=== PATIENT | female | born 1985 | race Caucasian/White ===

== ENCOUNTER 2018-02-17 05:24 | Inpatient (IN) | payer OTHER ==
[2018-02-17] MEDS ORDERED: METHYLERGONOVINE 0.2 MG/ML 1 ML AMP IM PRN (06:50)
[2018-02-17] MEDS ORDERED: LIDOCAINE 0.5% (PF) 5 MG/ML (50 ML SDV) SQ PRN (06:50)
[2018-02-17] MEDS ORDERED: TERBUTALINE 1 MG/ML VIAL SQ PRN (06:50)
[2018-02-17] MEDS ORDERED: OXYTOCIN 10 UNIT/ML 1 ML VIAL IM PRN (06:50)
[2018-02-17] MEDS ORDERED: CARBOPROST TROMETHAMINE 250 MCG/ML 1 ML AMP IM PRN (06:50)
[2018-02-17] MEDS ORDERED: OXYTOCIN 20 UNITS/1000 ML NS 1,000 ML IV SCH ×2 (07:00→14:45)
[2018-02-17] MEDS: LACTATED RINGERS 1,000 ML IV SCH ×2 (07:45→10:22)
[2018-02-17 07:52] LABS: Basophils % (A) 0 %; Eosinophils # (A) 0.2 k/uL (0-0.7); Eosinophils % (A) 1 %; HCT 37.3 % (34.0-46.0); HGB 12.5 gm/dL (11.4-16.0); Lymphocytes # (A) 2.3 k/uL (1.0-4.8); Lymphocytes % (A) 17 %; MCH 28.3 pg (25.0-35.0); MCHC 33.5 g/dL (31.0-37.0); MCV 84.3 fL (80.0-100.0); Mean Platelet Volume 6.8; Monocytes # (A) 0.6 k/uL (0-1.0); Monocytes % (A) 4 %; Neutrophils # (A) 9.8 k/uL (1.3-7.7); Neutrophils % (A) 75 %; Platelet Count 219 k/uL (150-450); RBC 4.43 m/uL (3.80-5.40); RDW 13.7 % (11.5-15.5)
--- NOTE | 2018-02-17 10:15 | P.HPOB ---
History of Present Illness H&P Date: 02/17/18 Chief Complaint: 40-0/7 weeks, early labor The patient is a 33-year-old 4 para 1021 admitted at 40-0/7 weeks as established by last menstrual period and confirmed by second trimester ultrasound. She is admitted in early active labor having made cervical change in triage with regular contractions. She had been scheduled for induction of labor tomorrow but instead presented in labor today. Her has been uncomplicated aside from being somewhat late for care having been first seen at approximately 23 weeks' gestation. As result, she did not have any screening for her status within the category of advanced maternal age. The remainder of her was uncomplicated and group B strep status is negative. Obstetrical history: 4 para 1021 with 1 previous normal spontaneous vaginal delivery without complications at term. Current statistics are listed in history of present illness. EDC of 18 was established by last menstrual period and confirmed by second trimester ultrasound. Laboratory workup demonstrates a blood type of B+ with a negative antibody screen. Rubella status is immune. The remainder of the laboratory workup was within normal limits. Second trimester Glucola was normal and group B strep status is negative. Gynecologic history: Unremarkable with no history of any infections to include STDs. Review of Systems Review of systems is confined to history of present illness. Past Medical History Past Medical History: No Reported History History of Any Multi-Drug Resistant Organisms: None Reported Past Surgical History: No Surgical Hx Reported Additional Past Surgical History / Comment(s): wisdom teeth Past Anesthesia/Blood Transfusion Reactions: No Reported Reaction Past Psychological History: No Psychological Hx Reported Smoking Status: Never smoker Past Alcohol Use History: None Reported Past Drug Use History: None Reported - Past Family History Brother(s) Additional Family Medical History / Comment(s): spina bifida (maternal half brother) Medications and Allergies Home Medications Medication Instructions Recorded Confirmed Type Pnv,Calcium 72/Iron/Folic Acid 1 tab PO DAILY 02/17/18 02/17/18 History [ Plus Tablet] Allergies Allergy/AdvReac Type Severity Reaction Status Date / Time No Known Allergies Allergy Verified 02/17/18 05:26 Exam Vital Signs Temp Pulse Resp BP 02/17/18 06:45 96.4 F L 93 16 127/72 02/17/18 05:28 96.5 F L 93 16 127/72 Intake and Output 02/16/18 02/17/18 02/17/18 22:59 06:59 14:59 Other: Weight 86.183 kg In general, this is a well-developed, well-nourished white female in some discomfort as she is in labor. Her heart has a regular rhythm and rate without murmur. Her lungs are clear to auscultation bilaterally in all bailey. Her abdomen is gravid, nondistended, has normal active bowel sounds, is soft, nontender, and without any palpable masses aside from uterine fundus. Her extremities are without any cyanosis, clubbing, or significant edema and are nontender to palpation bilaterally. Digital cervical examination demonstrates her cervix to be approximately 3-4 cm dilated, 70% effaced, the vertex in presentation at -2 station. Artificial rupture of membranes is carried out demonstrating clear fluid. Results Result Diagrams: 02/17/18 07:30 Abnormal Lab Results - Last 24 Hours (Table) 02/17/18 Range/Units 07:30 WBC 13.0 H (3.8-10.6) k/uL Neutrophils # 9.8 H (1.3-7.7) k/uL Assessment and Plan (1) Active labor at term Current Visit: Yes Status: Acute Code(s): [id number] - SNOMED Code(s): 87786610 Plan: The patient has been admitted for active management of labor. She will undergo augmentation of labor with Pitocin similar to being induced tomorrow morning. Artificial rupture of membranes is been carried out. She will have close maternal and surveillance and expectant management will be practiced. She is a good candidate for either IV or epidural analgesia, whichever she may choose.
[2018-02-17] MEDS ORDERED: ROPIVACAINE 100 MG, fentaNYL (PF) 200 MCG in SODIUM CHLORIDE 0.9% 76 ML EPIDURAL ONE (10:50)
[2018-02-17] MEDS ORDERED: HYDROCORTISONE 2.5% RECTAL CREAM 30 GM TUBE RECTAL PRN (14:39)
[2018-02-17] MEDS ORDERED: diphenhydrAMINE 25 MG CAP PO PRN (14:39)
[2018-02-17] MEDS ORDERED: BENZOCAINE/MENTHOL SPRAY 1 GM/SPRAY AEROSOL TOPICAL PRN (14:39)
[2018-02-17] MEDS ORDERED: diphenhydrAMINE 50 MG CAP PO PRN (14:39)
[2018-02-17] MEDS ORDERED: HYDROcodone/APAP 7.5-325MG 1 EACH TAB PO PRN (14:39)
[2018-02-17] MEDS ORDERED: ZOLPIDEM 5 MG TAB PO PRN (14:39)
[2018-02-17] MEDS ORDERED: diphenhydrAMINE 50 MG/ML 1 ML VIAL IVP PRN ×2 (14:39)
[2018-02-17] MEDS ORDERED: HYDROcodone/APAP 5-325MG 1 EACH TAB PO PRN (14:39)
[2018-02-17] MEDS ORDERED: SIMETHICONE 80 MG CHEWABLE PO PRN (14:39)
[2018-02-17] MEDS ORDERED: WITCH HAZEL 1 EACH MED..PAD TOPICAL PRN (14:39)
--- NOTE | 2018-02-17 14:43 | P.PROBDLV ---
Vaginal Delivery Note - . Vaginal Delivery Note: The patient is a 33-year-old 4 para 1021 admitted at 40-0/7 weeks by good dating parameters. She is admitted in early labor with all signs reassuring. She had been scheduled for an induction of labor tomorrow but presented today in labor as noted. Her has been essentially uncomplicated though she had somewhat late presentation for care. On admission , all signs reassuring. Group B strep status is negative. She underwent artificial rupture of membranes demonstrating clear fluid. She had an epidural catheter placed around the onset of the active phase of labor and ultimately had Pitocin augmentation added. She then made fairly rapid progress to complete and 0 station. She pushed over the course of approximately 15-20 minutes to a normal spontaneous vaginal delivery of a viable 7 lbs. 3 oz. baby girl with Apgars of 9 at 1 minute and 10 at 5 minutes delivered in the right occiput anterior position. There was a loose nuchal cord noted and reduced following delivery of the infant. The placenta was delivered spontaneously, intact, and grossly normal with a grossly normal, centrally inserted three- vessel cord. There was a single skin split over the site of a previous laceration or episiotomy repair which was gaping and therefore repaired with a single stitch of 3-0 chromic catgut. Estimated blood loss for the entire case was approximately 200 mL. There were no complications. All sponge, instrument , and needle counts were correct. Both mother and are resting comfortably in recovery.
[2018-02-17] MEDS: IBUPROFEN 600 MG TAB PO PRN (20:07)
[2018-02-17] MEDS: SENNOSIDES-DOCUSATE SODIUM 1 EACH TAB PO SCH (20:08)
[2018-02-18] MEDS: IBUPROFEN 600 MG TAB PO PRN ×2 (02:26→11:36)
[2018-02-18] MEDS: ACETAMINOPHEN TAB 325 MG TAB PO PRN ×2 (07:52→14:37)
[2018-02-18] MEDS: SENNOSIDES-DOCUSATE SODIUM 1 EACH TAB PO SCH (07:53)
[2018-02-18 08:20] VITALS: RESP 16
[2018-02-18 08:21] VITALS: BP 114/78; PULSE 88; TEMP 98.1
--- NOTE | 2018-02-18 10:51 | P.DS ---
Providers Date of admission: 02/17/18 06:45 Expected date of discharge: 02/18/18 Attending physician: Kulwinder Arana Primary care physician: Kulwinder Arana - Discharge Diagnosis(es) (1) Active labor at term Current Visit: Yes Status: Acute (2) Normal spontaneous vaginal delivery Current Visit: Yes Status: Acute Hospital Course: The patient is a 33-year-old 4 para 1021 admitted at 40-0/7 weeks by good dating parameters perches admitted in early active labor with all signs reassuring. Her was uncomplicated aside from slightly late establishment of care. She presented to late to have any screening regarding advanced maternal age. Group B strep status was negative. On labor and delivery, she had artificial rupture of membranes carried out demonstrating clear fluid. She had an epidural catheter placed for analgesia and later had Pitocin augmentation added. She then progressed fairly quickly to complete and pushed to a normal spontaneous vaginal delivery of a viable 7 lbs. 3 oz. baby girl with Apgars of 9 at 1 minute and 10 at 5 minutes. Her course was unremarkable with vital signs remaining stable and her temperature was afebrile throughout. She was deemed stable for discharge and was discharged home to follow-up in the office in 6 weeks' time routinely. Discharge instructions included calling for any significantly increased bleeding or foul- smelling lochia, significantly increased fever or abdominal pain, perineal complaints, breast complaints, or anything else that concerned her. She was additionally instructed to have nothing in the vagina for at least 6 weeks time to include intercourse. She understood her instructions and agrees to follow up as noted above. Discharge medications included only [id number] analgesic pain medications as needed. Maternal blood type is B+ and rubella status is immune. Procedures: #1. Artificial rupture of membranes #2. Epidural analgesia #3. Pitocin augmentation #4. Normal spontaneous vaginal delivery #5. Repair of perineal laceration Patient Condition at Discharge: Good Plan - Discharge Summary New Discharge Prescriptions: No Action Pnv,Calcium 72/Iron/Folic Acid [ Plus Tablet] 1 tab PO DAILY Discharge Medication List Pnv,Calcium 72/Iron/Folic Acid [ Plus Tablet] 1 tab PO DAILY 02/17/18 [ History] Follow up Appointment(s)/Referral(s): Kulwinder Arana MD [Primary Care Provider] - 6 Weeks Discharge Disposition: HOME SELF-CARE
--- NOTE | 2018-02-20 12:37 | P.MSEPDOC ---
Presenting Problems - Arrival Data Date of Arrival on Unit: 02/17/18 Time of Arrival on Unit: 06:50 Mode of Transport: Wheelchair - Complaint OB-Reason for Admission/Chief Complaint: Possible Onset of Labor Comment: pt states she has been devon since 2am and has had some bloody show present Medical History - Information : 4 Para: 1 Term: 1 : 0 Abortions: Spontaneous or Elective: 2 Number of Living Children: 1 - Gestational Age Gestational Age by ELVIRA (wks/days): 40 Weeks and 0 Days Review of Systems - Review of Systems Constitutional: No problems Breast: No problems ENT: No problems Cardiovascular: No problems Respiratory: No problems Gastrointestinal: No problems Genitourinary: No problems Musculoskeletal: No problems Neurological: No problems Skin: No problems Vital Signs - Temperature Temperature: 98.1 F Temperature Source: Oral - Pulse Right Pulse Rate: 88 Pulse Assessment Method: Automatic Cuff - Respirations Respiratory Rate: 16 O2 Sat by Pulse Oximetry: 97 - Blood Pressure Right Arm Blood Pressure: 114/78 Blood Pressure Mean: 90 Blood Pressure Source: Automatic Cuff Medical Screen Scoring (Pre) - Cervical Exam Dilation: 1-3 cm = 1 Effacement: More than 50% = 2 Membranes: Intact - Uterine Contractions Frequency: > or = 36 weeks =2 Duration: > 40 seconds = 2 - Maternal Vital Signs Maternal Temperature: N/A Maternal Blood Pressure: N/A Signs of Preeclampsia: N/A Maternal Respirations: N/A - Pain Assessment Pain Location and Character: Abdomen Pain Scale Used: Numeric (1 - 10) Pain Intensity: 8 Pain Management Goal: 4 Pain Description: *Acute, Aching, Crushing Pain Frequency: Intermittent Pain Duration Units: Minutes Pain Behavior: Facial Grimacing Pain Aggravating Factors: Contractions - Assessment Baseline FHR: 125 Position: N/A - Total Score Total Score (Pre): 7 - Level of Risk Level of Risk: Medium (6-9) Physician Notification (Pre) - Notification Comment Comment: dr vazquez in house Medical Screen Scoring (Post) - Cervical Exam Dilation: 1-3 cm = 1 Effacement: More than 50% = 2 Membranes: Intact - Uterine Contractions Frequency: > or = 36 weeks =2 Duration: > 40 seconds = 2 Intensity: Contraction palpated strong = 1 - Maternal Vital Signs Maternal Temperature: N/A Maternal Blood Pressure: N/A Signs of Preeclampsia: N/A Maternal Respirations: N/A - Pain Assessment Pain Scale Used: Numeric (1 - 10) - Assessment Heart Rate: 125 Heart Rate - NICHD Category: Category I (Normal) = 0 NST: Reactive Position: N/A - Total Score Total Score (Post): 8 - Post Treatment Level of Risk Post Treatment Level of Risk: Medium (6-9) Physician Notification (Post) - Physician Notified Physician Notified Date: 02/17/18 Physician Notified Time: 06:45 Physician/Practitioner Notified:: Dr Vazquez - Notification Comment Comment: reported on pts c/o cntrx through the night, SVE unchanged since office last week, pt scheduled for induction tomorrow, reactive fhts, cntrx pattern, bloody show. orders to admit for labor, start iv, he'll be in shortly to assess her Disposition - Disposition OB Disposition: Admit Transferred to:: st 4 Discharge Date: 02/18/18 Discharge Time: 15:31 I agree with the RN Medical Screening Exam: Yes Risk & Benefit of care provided described in d/c instruction: Yes Diagnosis: ENCOUNTER FOR FULL-TERM UNCOMPLICATED DELIVERY
== END 2018-02-18 15:39 | disposition home or self-care (01) | DRG 807 ==
LOC: FBPOP 05:24 → 4FBP 06:45
PROVIDERS: ADMIT Obstetrics & Gynecology; ATTEND Obstetrics & Gynecology
PROC: 10907ZC Drainage of Amniotic Fluid, Therapeutic from Products of Conception, Via Natural or Artificial Opening (ICD-10-PCS; principal; 2018-02-17)
PROC: 10E0XZZ Delivery of Products of Conception, External Approach (ICD-10-PCS; 2018-02-17)
PROC: 0KQM0ZZ Repair Perineum Muscle, Open Approach (ICD-10-PCS; 2018-02-17)
PROC: 3E033VJ Introduction of Other Hormone into Peripheral Vein, Percutaneous Approach (ICD-10-PCS; 2018-02-17)
PROC: 3E0R3BZ Introduction of Anesthetic Agent into Spinal Canal, Percutaneous Approach (ICD-10-PCS; 2018-02-17)
DX: O70.1 Second degree perineal laceration during delivery (principal); Z37.0 Single live birth; Z3A.40 40 weeks gestation of pregnancy; Z82.79 Family history of other congenital malformations, deformations and chromosomal abnormalities
CPT/HCPCS: 59025; 84112; 85025; 86850; 86900; 86901; 99213

== ENCOUNTER 2018-06-20 10:20 | Emergency (ER) | payer OTHER ==
[2018-06-20 10:23] VITALS: RESP 18
[2018-06-20] MEDS ORDERED: methylPREDNISolone SOD SUCCI 125 MG/2 ML VIAL IM ONE (10:51)
[2018-06-20] MEDS ORDERED: KETOROLAC 30 MG/ML 1 ML VIAL IM STA (10:52)
--- NOTE | 2018-06-20 10:59 | ED ---
General Adult HPI - General Chief complaint: Extremity Problem,Nontraumatic Stated complaint: lt leg pain Time Seen by Provider: 06/20/18 10:26 Source: patient, RN notes reviewed Mode of arrival: ambulatory Limitations: no limitations - History of Present Illness Initial comments: 33-year-old female with a past medical history of chronic back pain since 2013 presents to the emergency department for a chief complaint of left-sided sciatic pain. Patient states she has had this pain before. Patient states it is shooting down the back of her leg all the way down to her foot. Patient denies bladder or bowel changes. Patient denies any saddle anesthesia. Patient denies any weakness in the lower extremities. No fevers or chills. No history of IV drug abuse. Patient denies any chance of . Patient has no other complaints at this time including shortness of breath, chest pain, abdominal pain, nausea or vomiting, headache, or visual changes. - Related Data Home Medications Medication Instructions Recorded Confirmed Apri 1 tab PO DAILY 06/20/18 06/20/18 Sertraline [Zoloft] 50 mg PO DAILY 06/20/18 06/20/18 Allergies Allergy/AdvReac Type Severity Reaction Status Date / Time No Known Allergies Allergy Verified 06/20/18 10:51 Review of Systems ROS Statement: Those systems with pertinent positive or pertinent negative responses have been documented in the HPI. ROS Other: All systems not noted in ROS Statement are negative. Past Medical History Past Medical History: No Reported History History of Any Multi-Drug Resistant Organisms: None Reported Past Surgical History: No Surgical Hx Reported Additional Past Surgical History / Comment(s): wisdom teeth Past Anesthesia/Blood Transfusion Reactions: No Reported Reaction Past Psychological History: Depression Smoking Status: Never smoker Past Alcohol Use History: None Reported Past Drug Use History: None Reported - Past Family History Brother(s) Additional Family Medical History / Comment(s): spina bifida (maternal half brother) General Exam Limitations: no limitations General appearance: alert, in no apparent distress Head exam: Present: atraumatic, normocephalic, normal inspection Eye exam: Present: normal appearance, PERRL, EOMI. Absent: scleral icterus, conjunctival injection, periorbital swelling ENT exam: Present: normal exam, mucous membranes moist Neck exam: Present: normal inspection, full ROM. Absent: tenderness, meningismus, lymphadenopathy Respiratory exam: Present: normal lung sounds bilaterally. Absent: respiratory distress, wheezes, rales, rhonchi, stridor Cardiovascular Exam: Present: regular rate, normal rhythm, normal heart sounds. Absent: systolic murmur, diastolic murmur, rubs, gallop, clicks Extremities exam: Present: normal capillary refill (Capillary refill less than 2 seconds, DP pulse 2+ in the left lower extremity), other (Positive straight leg raise test on the left lower extremity. Tenderness in the sciatic notch). Absent: calf tenderness (No calf tenderness, no edema, no erythema, no increased circumference of the left calf) Back exam: Absent: vertebral tenderness Neurological exam: Present: alert, oriented X3, CN II-XII intact Psychiatric exam: Present: normal affect, normal mood Course Vital Signs 06/20/18 06/20/18 10:21 13:01 Temperature 98.0 F Pulse Rate 74 Respiratory 18 Rate Blood Pressure 124/83 125/85 O2 Sat by Pulse 99 Oximetry Medical Decision Making - Medical Decision Making 33-year-old female presents to the emergency department for a chief complaint of left leg pain. Patient states she has chronic back pain and has had sciatic pain in the past. The pain is radiating down the back of her leg down to her foot. She states it comes as a sharp shooting pains. She denies bladder or bowel changes, saddle anesthesia, fevers or chills. There is no swelling or calf tenderness noted in the leg. Neurovascular status intact in the left lower extremity. Positive straight leg raise test. Patient likely having sciatic pain. Patient initially given Toradol and Solu-Medrol without much relief. Patient given morphine as well. Minimal relief. Patient is ready to be discharged home however. She will be discharged home with prednisone, Flexeril, and Motrin. She is to return here if she has any worsening symptoms. I did discuss to return if she has any swelling or erythema of the leg, fevers, or bladder or bowel changes or saddle anesthesia. Disposition Clinical Impression: Sciatic leg pain Disposition: HOME SELF-CARE Condition: Good Instructions (If sedation given, give patient instructions): Sciatica (ED), Lower Back Exercises (ED) Additional Instructions: Please take prednisone and Flexeril as directed. Do not drive or operate machinery while taking Flexeril. Take Motrin as well but be sure to take food with Motrin. Do not get while taking Motrin. Follow-up with orthopedics this it is possible. If you are having any worsening symptoms then return here to the emergency department. These could include redness or swelling of the leg, fevers, bladder or bowel changes, or numbness of the buttock or groin. Is patient prescribed a controlled substance at d/c from ED?: No Referrals: Reagan Baum MD [REFERRING] - 1-2 days Eliud Valentine DO [Doctor of Osteopathic Medicine] - 1-2 days Time of Disposition: 13:39
[2018-06-20] MEDS ORDERED: ONDANSETRON ODT 4 MG TAB PO STA (12:13)
[2018-06-20] MEDS ORDERED: MORPHINE SULFATE 4 MG/ML SYRINGE IM STA (12:13)
[2018-06-20 13:31] VITALS: BP 125/85
[2018-06-20 14:10] VITALS: PULSE 66; TEMP 97
== END 2018-06-20 14:09 | disposition home or self-care (01) ==
LOC: EC 10:20
DX: M54.32 Sciatica, left side (principal); F32.9 Major depressive disorder, single episode, unspecified; Z79.899 Other long term (current) drug therapy; Z79.3 Long term (current) use of hormonal contraceptives
CPT/HCPCS: 99283; 96372 ×3; J2270; J2930; J1885

== ENCOUNTER 2018-06-25 09:14 | Emergency (ER) | payer OTHER ==
[2018-06-25 09:17] VITALS: BP 126/83; PULSE 90; RESP 18; TEMP 98.1
[2018-06-25] MEDS ORDERED: MORPHINE SULFATE 2 MG/ML SYRINGE IM STA (10:15)
--- NOTE | 2018-06-25 10:20 | ED ---
Back Pain HPI - General Chief Complaint: Back Pain/Injury Stated Complaint: pain with walking Time Seen by Provider: 06/25/18 09:53 Source: patient Limitations: no limitations - History of Present Illness Initial Comments: 33-year-old female past history of chronic back pain and left leg sciatica presenting today for chief complaint of left-sided sciatica. Patient states that she was seen last the emergency department for same complaint. She states that she had a sharp burning sensation down her leg is most of the thigh. She states that it now involves her calf. She states it is sharp shooting at times she feels a tingling sensation. Patient denies trauma injury to the back fever or chills night sweats history of cancer history of IV drug use loss of bowel bladder control urinary retention or numbness of the lower extremities, swelling of the leg or history of DVT. Patient states she has an appointment made on July [address] Baum, patient did not make an appointment with Dr[facility]. Pt denies weakness of the left leg but states that with ambulation the pain increases and certain position of the back. Pt states she has never had significant trauma to the back but has had this issue on and off chronically since 2013. Pt was supposed to go to physical therapy but her insurance lapsed at this time. Upon arrival patient is ambulatory. VS WNL, remaining ROS (-), patient denies any recent shortness of breath, chest pain, abdominal pain, nausea or vomiting, numbness or tingling, dysuria or hematuria, constipation or diarrhea, headaches or visual changes, or any other complaints. - Related Data Home Medications Medication Instructions Recorded Confirmed Apri 1 tab PO DAILY 06/20/18 06/25/18 Sertraline [Zoloft] 50 mg PO DAILY 06/20/18 06/25/18 traMADol HCL [Ultram] 100 mg PO ONCE PRN 06/25/18 06/25/18 Previous Rx's Medication Instructions Recorded Ibuprofen [Motrin] 600 mg PO Q8HR PRN #20 tab 06/20/18 predniSONE 50 mg PO DAILY #5 tablet 06/20/18 Allergies Allergy/AdvReac Type Severity Reaction Status Date / Time No Known Allergies Allergy Verified 06/25/18 09:49 Review of Systems ROS Statement: Those systems with pertinent positive or pertinent negative responses have been documented in the HPI. ROS Other: All systems not noted in ROS Statement are negative. Past Medical History Past Medical History: No Reported History Additional Past Medical History / Comment(s): sciatic nerve pain History of Any Multi-Drug Resistant Organisms: None Reported Past Surgical History: No Surgical Hx Reported Additional Past Surgical History / Comment(s): wisdom teeth Past Anesthesia/Blood Transfusion Reactions: No Reported Reaction Past Psychological History: Depression Smoking Status: Never smoker Past Alcohol Use History: None Reported Past Drug Use History: None Reported - Past Family History Brother(s) Additional Family Medical History / Comment(s): spina bifida (maternal half brother) General Exam - General Exam Comments Initial Comments: General: The patient is awake and alert, in no distress, and does not appear acutely ill. Eye: +3 mm pupils are equal, round and reactive to light, extra-ocular movemen ts are intact. No nystagmus. There is normal conjunctiva bilaterally. No signs of icterus. Ears, nose, mouth and throat: There are moist mucous membranes and no oral les ions. Neck: The neck is supple, there is no tenderness or JVD. Cardiovascular: There is a regular rate and rhythm. No murmur, rub or gallop is appreciated. Respiratory: Lungs are clear to auscultation, respirations are non-labored, breath sounds are equal. No wheezes, stridor, rales, or rhonchi. Gastrointestinal: Soft, non-distended, non-tender abdomen without masses or organomegaly noted. There is no rebound or guarding present. No CVA tenderness. Bowel sounds are unremarkable. Musculoskeletal: Normal inspection of the cervical thoracic and lumbar spine no contusions or erythema. No tenderness midline to palpation of the cervical thoracic or lumbar spine. Normal ROM, no tenderness at the right lower extremity. Patient admits to pain with range of motion at the left leg. Strength 5/5 of the LE equal in comparison b/l. Sensation intact of the lower e xtremities equal and comparison bilaterally from the thigh to the toe. Including the saddle region of the legs b/l. DP pulses equal bilaterally 2+. Positive straight leg raise on the left. Negative Homans bilaterally. No myoclonus or fasiculations. Neurological: A&O x 3. CN II-XII intact, There are no obvious motor or sensory deficits. Coordination appears grossly intact. Speech is normal. Skin: Skin is warm and dry and no rashes or lesions are noted. Psychiatric: Cooperative, appropriate mood & affect, normal judgment. Limitations: no limitations Course Vital Signs 06/25/18 09:15 Temperature 98.1 F Pulse Rate 90 Respiratory 18 Rate Blood Pressure 126/83 O2 Sat by Pulse 99 Oximetry Medical Decision Making - Medical Decision Making 33-year-old female presenting for left-sided sciatica. Patient has had this issue chronically. Patient states this has been ongoing for the past week, she states is longer than her usual bouts of sciatica. Patient denies injury or trauma to the back. Fever chills night sweats history of cancer, increasing pain at night. She denies loss of bowel bladder control urinary retention, or muscle weakness. She states she has some difficulty walking because of the pain. Remaining review of systems negative. Examination revealed straight leg raise on the left. Patient is no midline tenderness of the lumbar or thoracic spine. No findings consistent with cauda equina. No neurovascular deficits. No swelling of the left leg. I discussed the importance of follow-up with orthopedic surgery. I demonstrated several stretching techniques for sciatica. I discussed the case attending provider Dr. Gustafson at this time we feel pt is stable for discharge, with outpatient imaging studies as recommended by orthopedic surgery. She was given pain medications the emergency department. Return parameters were discussed at length with patient including loss of bowel bladder control, urinary retention, vaginal numbness, weakness of the leg, fever, leg swelling or anyother concerning signs or symptoms she verbalizes understanding. Patient was discharged in stable condition appearing well Disposition Clinical Impression: Sciatica of left side Disposition: HOME SELF-CARE Condition: Good Instructions (If sedation given, give patient instructions): Sciatica (ED), Lower Back Exercises (ED) Additional Instructions: Please use medication as discussed. Please follow-up with Dr. Valentine in the next 1-2 days. Please return to emergency room if the symptoms increase or worsen or for any other concerns, including loss of sensation, loss of bowel or bladder control, muscle weakness of the left leg, vaginal numbness. Is patient prescribed a controlled substance at d/c from ED?: No Referrals: None,Stated [Primary Care Provider] - 1-2 days Eliud Valentine DO [Doctor of Osteopathic Medicine] - 1-2 days Time of Disposition: 10:24
[2018-06-25] MEDS ORDERED: ONDANSETRON ODT 4 MG TAB PO STA (10:21)
[2018-06-25] MEDS ORDERED: ACET/COD 300 MG/30 MG STARTER PACK 6 TAB BTL PO STA (10:36)
== END 2018-06-25 10:47 | disposition home or self-care (01) ==
LOC: EC 09:14
DX: M54.32 Sciatica, left side (principal); F32.9 Major depressive disorder, single episode, unspecified; Z79.3 Long term (current) use of hormonal contraceptives; Z79.899 Other long term (current) drug therapy; Z82.79 Family history of other congenital malformations, deformations and chromosomal abnormalities
CPT/HCPCS: 99283; 96372; J2270

== ENCOUNTER → 2019-03-03 | Outpatient (CLI) | payer OTHER ==
[2019-03-03 10:30] LABS: Basophils % (A) 0 %; Eosinophils # (A) 0.2 k/uL (0-0.7); Eosinophils % (A) 3 %; HCT 40.9 % (34.0-46.0); HGB 13.3 gm/dL (11.4-16.0); Lymphocytes # (A) 1.6 k/uL (1.0-4.8); Lymphocytes % (A) 24 %; MCHC 32.4 g/dL (31.0-37.0); MCV 86.5 fL (80.0-100.0); Mean Platelet Volume 7.4; Monocytes # (A) 0.4 k/uL (0-1.0); Monocytes % (A) 5 %; Neutrophils # (A) 4.4 k/uL (1.3-7.7); Neutrophils % (A) 65 %; Platelet Count 280 k/uL (150-450); RBC 4.73 m/uL (3.80-5.40); RDW 12.7 % (11.5-15.5); WBC 6.8 k/uL (3.8-10.6)
== END | disposition home or self-care (01) ==
LOC: LABPAT 09:56
PROVIDERS: ATTEND Obstetrics & Gynecology
DX: Z01.812 Encounter for preprocedural laboratory examination (principal)
CPT/HCPCS: 36415; 85025

== ENCOUNTER 2019-03-10 05:55 | Day surgery (SDC) | payer OTHER ==
[2019-03-05 15:22] VITALS: BMI 28.7
[~2019-03-10 05:55] MED LIST: DEXAMETHASONE SOD PHOSPHATE 10 MG/ML 1 ML VIAL IV ONE; HYDROmorphone 0.5 MG/0.5 ML SYRINGE IVP PRN; LACTATED RINGERS 1,000 ML IV SCH; LIDOCAINE 1% 20 ML VIAL (10MG/ML) FOR IV START INTRADERMA PRN; ONDANSETRON 4 MG/2 ML VIAL IVP ONE; Pre Op ABX Message 1 EACH MISC MISCELLANE ONE; fentaNYL (PF) 50 MCG/ML 2 ML AMP IV PRN
[2019-03-10] MEDS ORDERED: SCOPOLAMINE 1.5MG/72HR PATCH TRANSDERM ONE (06:38)
--- NOTE | 2019-03-10 07:09 | P.HPOB ---
History of Present Illness H&P Date: 03/10/19 Chief Complaint: family planning patient is a 34-year-old who has completed her family planning and desires permanent sterilization. Risks/benefits/alternatives to this procedure were discussed with the patient in detail and did include but were not limited to bleeding infection damage to bladder and bowel vascular injuries nerve injuries potential need further surgeries. Failure rate of 4-6 per thousand and this procedure is designed to be a permanent procedure not to be reversed. All questions are answered for her prior to proceeding to the operating room. Exam is otherwise unremarkable Past Medical History Past Medical History: No Reported History Additional Past Medical History / Comment(s): Sciatic nerve pain at times. History of Any Multi-Drug Resistant Organisms: None Reported Past Surgical History: No Surgical Hx Reported Additional Past Surgical History / Comment(s): [place] tooth extracted. Past Anesthesia/Blood Transfusion Reactions: Motion Sickness Additional Past Anesthesia/Blood Transfusion Reaction / Comment(s): Has never had general anesthesia. Past Psychological History: Depression Additional Psychological History / Comment(s): Hx depression, no current issues. Smoking Status: Former smoker Past Alcohol Use History: Rare Additional Past Alcohol Use History / Comment(s): Quit smoking 5 yrs ago, smoked for 7 yrs on and off. Past Drug Use History: None Reported - Past Family History Brother(s) Additional Family Medical History / Comment(s): Spina Bifida (maternal half brother). Medications and Allergies Home Medications Medication Instructions Recorded Confirmed Type Ibuprofen [Advil] 400 mg PO Q6HR PRN 03/05/19 03/05/19 History Allergies Allergy/AdvReac Type Severity Reaction Status Date / Time No Known Allergies Allergy Verified 03/10/19 06:50 Exam Osteopathic Statement: *. No significant issues noted on an osteopathic structural exam other than those noted in the History and Physical/Consult. Vital Signs Temp Pulse Resp BP Pulse Ox 03/10/19 06:25 97.8 F 76 16 113/78 97 Intake and Output 03/09/19 03/10/19 03/10/19 22:59 06:59 14:59 Other: Weight 80.3 kg - OBG Physical Exam Breast: both: normal (no masses) Abdomen: bowel sounds normal, no diffuse tenderness, no bruit present, no guarding noted, no hepatomegaly, no splenomegaly, no mass Vulva: both: normal Vagina: normal moisture, no discharge Cervix: no lesion, no discharge Uterus: normal size, normal contour Adnexa: both: normal Anus/Rectum: normal perianal skin, no rectal mass, no hemorrhoids, heme negative
[2019-03-10] MEDS ORDERED: fentaNYL (PF) 50 MCG/ML 2 ML AMP ONE (07:22)
[2019-03-10] MEDS ORDERED: LIDOCAINE 1% INJ 10MG/ML (20 ML MDV) ONE (07:22)
[2019-03-10] MEDS ORDERED: MIDAZOLAM 2 MG/2 ML VIAL ONE (07:22)
[2019-03-10] MEDS ORDERED: ACETAMINOPHEN IV (For NPO) 1,000 MG/100 ML VIAL ONE (07:22)
[2019-03-10] MEDS ORDERED: KETOROLAC 30 MG/ML 1 ML VIAL ONE (07:22)
[2019-03-10] MEDS ORDERED: PROPOFOL 10 MG/ML 20 ML VIAL IV ONE (07:22)
[2019-03-10] MEDS ORDERED: SUCCINYLCHOLINE CHLORIDE 100 MG/5 ML SYR IV ONE (07:22)
[2019-03-10] MEDS ORDERED: BUPIVACAINE (PF) 0.25% 30 ML VIAL SQ ONE (07:40)
[2019-03-10 08:16] VITALS: TEMP 98
[2019-03-10] MEDS ORDERED: ONDANSETRON 4 MG/2 ML VIAL IVP ONE (08:57)
--- NOTE | 2019-03-10 08:59 | P.OP ---
Date of Procedure: 03/10/19 Preoperative Diagnosis: Family planning Postoperative Diagnosis: Same Procedure(s) Performed: Laparoscopic tubal occlusion with Filshie clips Anesthesia: BETO Surgeon: Gabriel Schroeder Estimated Blood Loss (ml): 3 IV fluids (ml): 300 Urine output (ml): 30 Pathology: none sent Condition: stable Disposition: same day Operative Findings: Normal female pelvic anatomy Description of Procedure: Patient was taken to the operating suite where a general anesthetic was found be adequate. She was prepped and draped in the normal sterile fashion and placed in the dorsal lithotomy position. Initially a weighted speculum was inserted the vagina and the anterior lip of cervix identified and grasped with a single- tooth tenaculum. Uterus was then sounded to 9 cm and a manipulator was inserted through the cervix. Other instruments removed and red rubber catheter was then used to drain the bladder of urine. Once this was accomplished, close were changed and attention was turned to the abdominal portion of procedure. 2 mL of quarter percent Marcaine was then injected periumbilically and through this injected anesthetic a 5 mm skin incision was made. Through this incision under direct visualization with an optical trocar and sleeve the camera was inserted. Once peritoneal placement was assured gas was allowed to fully insufflate the abdomen and patient was then placed in steep Trendelenburg position. A second 8 mm skin incision was then made 3 cm above the pubic symphysis in the midline and through this incision again under direct visualization, a second port and sleeve were inserted. Uterus was then elevated and fallopian tubes identified. First the right fallopian tube than the left fallopian tube had a Filshie clip applied 2-3 cm from uterine cornu. No bleeding is noted in the mesosalpinx. No other gross abdomen Allis are noted. Instrument's were then removed and gas was allowed to expel from the abdomen. 5 deep breaths were provided during this process. Once completed sleeves were removed and 4-0 Vicryl used to close incision subcuticular. 8 mL of quarter percent Marcaine was then injected around these incisions. Incidents were then removed from the vagina. Sponge, lap, needle counts were all correct 2. Patient was then taken to the recovery room in stable and satisfactory condition. Plan - Discharge Summary Discharge Rx Participant: Yes New Discharge Prescriptions: New Ibuprofen [Motrin] 600 mg PO Q6HR PRN #30 tab PRN Reason: Pain HYDROcodone/APAP 5-325MG [[place] 5-325] 1 tab PO Q4HR PRN #30 tab PRN Reason: Pain No Action Ibuprofen [Advil] 400 mg PO Q6HR PRN PRN Reason: Headache Discharge Medication List Ibuprofen [Advil] 400 mg PO Q6HR PRN 03/05/19 [History] HYDROcodone/APAP 5-325MG [[place] 5-325] 1 tab PO Q4HR PRN #30 tab 03/10/19 [Rx] Ibuprofen [Motrin] 600 mg PO Q6HR PRN #30 tab 03/10/19 [Rx] Follow up Appointment(s)/Referral(s): Gabriel Schroeder DO [Doctor of Osteopathic Medicine] - 2 Weeks Patient Instructions/Handouts: *Surgery [facility] - (Anesthesia) Discharge Instructions Outpatient Surgery, *Surgery [facility] - Scopalamine Patch Instructions, Tubal Ligation (DC) Discharge Disposition: HOME SELF-CARE
[2019-03-10 09:04] VITALS: RESP 18
[2019-03-10] MEDS ORDERED: HYDROcodone/APAP 5-325MG 1 EACH TAB PO ONE (09:43)
[2019-03-10 09:49] VITALS: BP 121/73; PULSE 82
== END 2019-03-10 10:44 | disposition home or self-care (01) ==
LOC: OR 05:55
PROVIDERS: ATTEND Obstetrics & Gynecology
DX: Z30.2 Encounter for sterilization (principal); F32.9 Major depressive disorder, single episode, unspecified; Z87.891 Personal history of nicotine dependence
CPT/HCPCS: 81025; 58671; J2250; J1100; J2405; J2001; J3010; J1885; J0131; J0330; J2704; J1170

== ENCOUNTER 2019-05-05 06:26 | Day surgery (SDC) | payer OTHER ==
[2019-04-30 14:08] VITALS: BMI 28.7
--- NOTE | 2019-05-02 16:18 | P.HPOB ---
History of Present Illness H&P Date: 05/02/19 Chief Complaint: Cervical dysplasia Tears a 34 she'll female with GUS-3 on colposcopy and needs LEEP colposcopy for further tissue diagnosing and treatment. Risks/benefits/alternatives were reviewed with the patient in detail and all questions were answered for her prior to proceeding to the operative room. Risks did include but were not limited to bleeding and infection. Bladder injury or vaginal fault injury. Potential risk for difficulty in getting or maintaining her . Past Medical History Past Medical History: No Reported History Additional Past Medical History / Comment(s): sciatic nerve pain Left History of Any Multi-Drug Resistant Organisms: None Reported Past Surgical History: Tubal Ligation Additional Past Surgical History / Comment(s): wisdom teeth Past Anesthesia/Blood Transfusion Reactions: No Reported Reaction Smoking Status: Former smoker - Past Family History Mother Family Medical History: No Reported History Medications and Allergies Home Medications Medication Instructions Recorded Confirmed Type No Known Home Medications 04/30/19 04/30/19 History Allergies Allergy/AdvReac Type Severity Reaction Status Date / Time No Known Allergies Allergy Verified 04/30/19 14:04 Exam Osteopathic Statement: *. No significant issues noted on an osteopathic structural exam other than those noted in the History and Physical/Consult. - OBG Physical Exam Breast: both: normal (no masses) Abdomen: bowel sounds normal, no diffuse tenderness, no bruit present, no guarding noted, no hepatomegaly, no splenomegaly, no mass Vulva: both: normal Vagina: normal moisture, no discharge Cervix: no lesion, no discharge Uterus: normal size, normal contour Adnexa: both: normal Anus/Rectum: normal perianal skin, no rectal mass, no hemorrhoids, heme negative
[~2019-05-05 06:26] MED LIST changes: +MIDAZOLAM 2 MG/2 ML VIAL IV PRN
[2019-05-05] MEDS ORDERED: SCOPOLAMINE 1.5MG/72HR PATCH TRANSDERM ONE (07:00)
[2019-05-05] MEDS ORDERED: MIDAZOLAM 2 MG/2 ML VIAL ONE (07:30)
[2019-05-05] MEDS ORDERED: LIDOCAINE 1% INJ 10MG/ML (20 ML MDV) ONE (07:30)
[2019-05-05] MEDS ORDERED: PROPOFOL 10 MG/ML 20 ML VIAL IV ONE (07:30)
[2019-05-05] MEDS ORDERED: KETOROLAC 30 MG/ML 1 ML VIAL ONE (07:30)
[2019-05-05] MEDS ORDERED: fentaNYL (PF) 50 MCG/ML 2 ML AMP ONE (07:30)
[2019-05-05] MEDS ORDERED: IODINE/POTASS IOD (LUGOLS) BOTTLE TOPICAL ONE (07:59)
--- NOTE | 2019-05-05 08:11 | P.OP ---
Date of Procedure: 05/05/19 Preoperative Diagnosis: Cervical dysplasia Postoperative Diagnosis: Same Procedure(s) Performed: LEEP colposcopy Anesthesia: BETO Surgeon: Gabriel Schroeder Estimated Blood Loss (ml): 5 Pathology: other (Cervical specimen) Condition: stable Disposition: same day Operative Findings: Tissue pathology pending Description of Procedure: Care was taken to the operating suite where a general anesthetic was found be adequate. She was prepped and draped in the normal sterile fashion and placed in dorsal lithotomy position. Initially a coated speculum was inserted into the vagina and the ectocervix was covered with Lugol solution. Colposcope was then used to guide biopsy. Using a 2 cm loop a single pass was made which encompassed all the dysplastic areas that were visualized. Tissue was marked at 12:00 and sent to pathology for evaluation. Ball-tipped cautery was then used to obtain excellent hemostasis and burn any potential remaining dysplastic tissue. All instruments were then removed. Sponge, lap, needle counts were all correct 2. Patient was then taken to the recovery room in stable and satisfactory condition. Plan - Discharge Summary Discharge Rx Participant: Yes New Discharge Prescriptions: New Ibuprofen [Motrin] 600 mg PO Q6HR PRN #30 tab PRN Reason: Pain Discharge Medication List Ibuprofen [Motrin] 600 mg PO Q6HR PRN #30 tab 05/05/19 [Rx] Follow up Appointment(s)/Referral(s): Gabriel Schroeder DO [Doctor of Osteopathic Medicine] - 1 Week Activity/Diet/Wound Care/Special Instructions: No heavy lifting, limit stairs and driving, and pelvic rest. If any high temperatures, heavy bleeding, or severe pain call my office Discharge Disposition: HOME SELF-CARE
[2019-05-05 08:28] VITALS: RESP 16; TEMP 98.6
[2019-05-05 09:01] VITALS: BP 110/75; PULSE 65
== END 2019-05-05 09:57 | disposition home or self-care (01) ==
LOC: OR 06:26
PROVIDERS: ATTEND Obstetrics & Gynecology
DX: N87.1 Moderate cervical dysplasia (principal); M54.32 Sciatica, left side; A63.0 Anogenital (venereal) warts; Z98.51 Tubal ligation status; Z87.891 Personal history of nicotine dependence
CPT/HCPCS: 81025; 88307; 57461; J2250; J1100; J2405; J2001; J3010; J1885; J2704